=== PATIENT | female | born 1985 | race Caucasian/White ===

== ENCOUNTER → 2022-02-23 15:30 | Observation (INO) ==
[2022-02-22 11:52] LABS: Bilirubin,Urine Negative (Negative); Blood,Urine Negative (Negative); Clarity,Urine Clear (Clear); Color,Urine Colorless (Yellow); Glucose,Urine (UA) Normal (Normal); Ketones,Urine Negative (Negative); Leukocyte Esterase,Urine Negative (Negative); Nitrite,Urine Negative (Negative); Protein,Urine Negative (Neg-Trace); Specific Gravity,Urine 1.005 (1.010-1.025); Urobilinogen,Urine Normal (Normal)
[2022-02-22 13:11] LABS: Basophils % 0.3 %; Eosinophils # 0.1 K/mcL (0.0-0.6); Eosinophils % 0.7 %; Hematocrit 36.4 % (35.3-44.9); Hemoglobin 11.8 g/dL (11.5-15.4); Immature Granulocytes % 0.5 % (0-4); Lymphocytes # 1.9 K/mcL (0.6-4.6); Mean Corpuscular HGB Conc 32.4 g/dL (31.6-35.5); Mean Corpuscular Hemoglobin 26.5 pg (28.0-33.3); Mean Corpuscular Volume 81.8 fL (83.0-100.0); Mean Platelet Volume 10.2 fL (9.4-12.4); Monocytes # 0.5 K/mcL (0.0-1.3); Monocytes % 4.6 %; Platelet Count 207 K/mcL (140-400); Red Blood Count 4.45 M/mcL (3.82-4.97); Red Cell Distribution Width 14.8 % (11.5-14.5); Segmented Neutrophils % 75.9 %; White Blood Count 10.6 K/mcL (4.3-11.1)
[2022-02-22] MEDS: Betamethasone Acet/SodPhos 30 MG/5 ML VIAL IM SCH (14:25)
[2022-02-22] MEDS: D5% in Lactated Ringers 1,000 ML IVC SCH (15:54)
[2022-02-22] MEDS: NIFEdipine Immed Rel 10 MG CAPSULE PO SCH (18:12)
[2022-02-23] MEDS: NIFEdipine Immed Rel 10 MG CAPSULE PO SCH ×3 (00:15→12:00)
[2022-02-23] MEDS: D5% in Lactated Ringers 1,000 ML IVC SCH (10:14)
[2022-02-23] MEDS: Betamethasone Acet/SodPhos 30 MG/5 ML VIAL IM SCH (14:29)
[~2022-02-23 15:30] MED LIST: *HR* Nalbuphine 10 MG/ML AMPUL IM ONE; *HR* Nalbuphine 10 MG/ML AMPUL IV ONE; *HR* Promethazine 25 MG/ML VIAL IM ONE; Ondansetron 4 MG/2 ML VIAL IVP PRN; Ringer's Solution, Lactated 250 ML IV.SOLN IVC ONE; Ringers Solution, Lactated 500 ML IVC ONE; Ringers Solution, Lactated 500 ML ONE
== END | disposition home or self-care (01) ==
LOC: 1NENULAB
PROVIDERS: ADMIT Obstetrics & Gynecology; ATTEND Obstetrics & Gynecology

== ENCOUNTER → 2022-03-01 21:57 | Observation (INO) ==
[2022-03-01 18:50] LABS: Bilirubin,Urine Negative (Negative); Blood,Urine Negative (Negative); Clarity,Urine Clear (Clear); Color,Urine Colorless (Yellow); Glucose,Urine (UA) Normal (Normal); Ketones,Urine Negative (Negative); Leukocyte Esterase,Urine Negative (Negative); Nitrite,Urine Negative (Negative); PH,Urine 6.5 pH Units (5.0-8.0); Protein,Urine Negative (Neg-Trace); Specific Gravity,Urine 1.009 (1.010-1.025); Urobilinogen,Urine Normal (Normal)
[~2022-03-01 21:57] MED LIST changes: -*HR* Nalbuphine 10 MG/ML AMPUL IM ONE; -*HR* Nalbuphine 10 MG/ML AMPUL IV ONE; -*HR* Promethazine 25 MG/ML VIAL IM ONE; +Morphine Sulfate 2 MG/ML SYRINGE IVP ONE; -Ondansetron 4 MG/2 ML VIAL IVP PRN; -Ringer's Solution, Lactated 250 ML IV.SOLN IVC ONE; +Ringers Solution, Lactated 1,000 ML IVC SCH; +Ringers Solution, Lactated 1,000 ML ONE; -Ringers Solution, Lactated 500 ML IVC ONE; -Ringers Solution, Lactated 500 ML ONE
== END | disposition home or self-care (01) ==
LOC: 1NENULAB
PROVIDERS: ADMIT Obstetrics & Gynecology; ATTEND Obstetrics & Gynecology

== ENCOUNTER → 2022-03-15 10:43 | Observation (INO) ==
[~2022-03-15 10:43] MED LIST changes: +Loratadine 10 MG TABLET PO SCH; -Morphine Sulfate 2 MG/ML SYRINGE IVP ONE; -Ringers Solution, Lactated 1,000 ML IVC SCH; -Ringers Solution, Lactated 1,000 ML ONE
== END | disposition home or self-care (01) ==
LOC: 1NENULAB
PROVIDERS: ADMIT Obstetrics & Gynecology; ATTEND Obstetrics & Gynecology